=== PATIENT | male | born 1940 | race Caucasian/White ===

== ENCOUNTER 2025-05-10 10:02 | Observation (INO) | payer OTHER ==
[~2025-05-10] VITALS: Ht 170.2 cm; Wt 75.0 kg
[2025-05-10 10:47] LABS: BASOPHILS ABSOLUTE AUTO 0.02 K/mm3 (0.00-0.23); BASOPHILS PERCENT AUTO 0 % (0-2); EOSINOPHILS ABSOLUTE AUTO 0.07 K/mm3 (0.00-0.68); EOSINOPHILS PERCENT AUTO 1 % (0-6); Hematocrit 42.4 % (37.0-53.0); Hemoglobin 14.3 g/dL (13.5-17.5); IMMATURE GRAN ABSOLUTE AUTO 0.02 K/mm3 (0.00-0.10); IMMATURE GRAN PERCENT AUTO 0 % (0-1); LYMPHOCYTES ABSOLUTE AUTO 1.10 K/mm3 (0.84-5.20); LYMPHOCYTES PERCENT AUTO 17 % (21-46); MONOCYTES ABSOLUTE AUTO 0.50 K/mm3 (0.16-1.47); MONOCYTES PERCENT AUTO 8 % (4-13); Mean Corpuscular HGB Conc 33.7 g/dL (31.5-36.5); Mean Corpuscular Volume 96 fL (80-100); NEUTROPHILS ABSOLUTE AUTO 4.87 K/mm3 (1.96-9.15); NEUTROPHILS PERCENT AUTO 74 % (41-73); NRBC ABSOLUTE 0.00 K/mm3 (0.00-0.02); NRBC Auto 0.0 /100 WBC (0.0-0.2); Platelet Count 168 K/mm3 (150-400); RDW Coefficient Variation 14.9 % (11.7-14.2); RDW Standard Deviation 51.9 fL (35.1-46.3)
[2025-05-10] MEDS ORDERED: FOLI1 PO (11:09)
[2025-05-10] MEDS ORDERED: AMLO10 PO (11:09)
[2025-05-10] MEDS ORDERED: NS 1,000 ML IV SCH (11:10)
[2025-05-10 11:12] LABS: Alanine Aminotransfer (ALT/SGP 26.0 U/L (12-78); Albumin, Blood 3.5 g/dL (3.4-5.0); Albumin/Globulin Ratio 0.9 (0.8-1.8); Anion Gap 7.0 mmol/L (3-11); Aspartate Aminotrans (AST/SGOT 31.0 U/L (12-37); Bilirubin, Total 1.3 mg/dL (0.1-1.0); Blood Urea Nitrogen 17.0 mg/dL (8-24); CO2, Blood 25.0 mmol/L (21-32); Calcium, Blood 8.8 mg/dL (8.5-10.1); Chloride, Blood 112.0 mmol/L (98-108); Creatinine, Blood 0.99 mg/dL (0.60-1.20); Globulin, Blood 4.0 g/dL (2.2-4.0); Glucose, Blood 93.0 mg/dL (70-99); Potassium, Blood 4.1 mmol/L (3.5-5.5); Sodium, Blood 140.0 mmol/L (136-145); Total Protein, Blood 7.5 g/dL (6.4-8.2)
[2025-05-10] MEDS ORDERED: POTA10T PO (11:12)
[2025-05-10] MEDS ORDERED: ERGO400 PO (11:12)
[2025-05-10] MEDS ORDERED: Aspir 8181 MG PO (11:13)
[2025-05-10] MEDS ORDERED: METTREX2.5 PO (11:13)
[2025-05-10] MEDS ORDERED: LOSA50 PO (11:13)
[2025-05-10] MEDS ORDERED: Vitamin B-12100 MCG PO (11:14)
[2025-05-10] MEDS ORDERED: FLU VACC TS2025(65UP)/MF59C/PF 45 MCG/0.5 ML SYRINGE IM SCH (13:55)
[2025-05-10 16:04] VITALS: BP 160/102
--- NOTE | 2025-05-10 19:23 | NUR ---
SHIFT SUMMARY PATIENT ALERT AND ORIENTEDX4 BUT FORGETFUL. ABLE TO MAKE NEEDS KNOWN DENIES CP OR SOB. TOLERATING MEALS AND VOIDING IN THE URINAL. HOSPITALIST AWARE OF TROP LEVELS AND AWARE OF PACER INTERAGATION ATTEMPT BUT NO SUCCESS AT BEDSIDE. HE WILL NEEDS TO HAVE IT DONE AT THE [facility] TOMORROW.
[2025-05-10 19:28] VITALS: BP 140/94
--- NOTE | 2025-05-10 19:59 | NUR ---
PM NOTE PT ALERT, ORIENTED X4; FORGETFUL AT TIMES. ON BEDREST. PT DENIES PAIN, CHEST PAIN/PRESSURE, SOB, NASUEA, AND DIZZINESS AND LIGHTHEADEDNESS AT THIS TIME. TELE SHOWING PACED, BP STABLE. SPO2 >90% ON RA, BREATHING EVEN AND UNLABORED. ABD SOFT, NONTENDER, HYPERACTIVE B/T T/O. NO EDEMA NOTED. OTHER VSS. CALL LIGHT WITHIN REACH.
[2025-05-10 23:57] VITALS: BP 150/89
[2025-05-11 03:24] VITALS: BP 153/101
[2025-05-11 04:11] LABS: Anion Gap 6.0 mmol/L (3-11); Blood Urea Nitrogen 14.0 mg/dL (8-24); CO2, Blood 28.0 mmol/L (21-32); Calcium, Blood 8.8 mg/dL (8.5-10.1); Chloride, Blood 109.0 mmol/L (98-108); Creatinine, Blood 0.87 mg/dL (0.60-1.20); Glucose, Blood 90.0 mg/dL (70-99); Potassium, Blood 3.1 mmol/L (3.5-5.5); Sodium, Blood 140.0 mmol/L (136-145)
--- NOTE | 2025-05-11 04:54 | NUR ---
Shift Summary No acute changes noted during shift. Vss. Call light with in reach.
[2025-05-11 07:40] VITALS: BP 135/102
--- NOTE | 2025-05-11 08:27 | NUR ---
ORTHOSTATIC VITALS: LYING: BP - 119/81(93) HR - 82 SITTING: BP - 121/87(95) HR - 86 STANDING: BP - 136/105 (117) HR - 88
[2025-05-11] MEDS ORDERED: Enoxaparin 40 MG/0.4 ML SYR SC SCH (09:00)
[2025-05-11] MEDS ORDERED: Cholecalciferol 1000 Unit Tablet (=25MCG) PO SCH (09:00)
[2025-05-11] MEDS ORDERED: Folic Acid 1 MG TAB PO SCH (09:00)
--- NOTE | 2025-05-11 10:03 | NUR ---
AM NOTE: PATIENT ALERT AND ORIENTED. SEEMS TO BE FORGETFULL AT TIMES. BED ALARM IN PLACE. AT BEDSIDE. PERRLA. USING ALL EXTREMITIES. SLIGHTLY ROBINSON. DENIES PAINS. ABLE TO TURN AND REPOSITION SELF IN BED. SBA FOR SAFETY. PHYSICAL THERAPY IN ROOM AT THIS TIME. TELE SHOWING V PACED WITH HR 70-90'S. SBP 110-130'S. ORTHOSTATIC VITALS COMPLETE, SEE PREVIOUS NOTE. DENIES CHEST PAIN/PRESSURE/PALPITATIONS. DENIES FEELINGS OF SYNCOPE. PPP. IV'S SALINE LOCKED. ON ROOM AIR SATING ABOVE 95%. DENIES SOB. LUNG SOUNDS CLEAR. EVEN AND UNLABORED RESPIRATIONS. BOWEL TONES PRESENT. DENIES ABDOMINAL PAIN/NAUSEA. USING URINAL TO VOID. UP TO BATHROOM WITH ASSISTANCE. TOLERATING PO DIET. VISIT FROM PRINTING SIGN MACHINE OPERATOR THIS AM. ORAL SUPPLEMENTS ORDERED. SKIN C/D/I WITH SOME SCATTERED BRUISING. PATIENT NOTED TO HAVE LARGE AMOUNT OF MOLES SCATTERED ACROSS BACK. PLAN FOR PACER INTERROGATION TO BE COMPLETED BY [facility]ART [facility]ENTER STAFF THIS MORNING. DR. SPEARS TO BEDSIDE, THIS RN PRESENT FOR MD ROUNDING. NO NEW ORDERS FOR THIS RN TO PLACE. REMAINS AT BEDSIDE. CALL LIGHT IN REACH.
--- NOTE | 2025-05-11 10:34 | NUR ---
PACER INTERROGATION BEING DONE AT THIS TIME BY HEART CENTER RN.
[2025-05-11 10:44] VITALS: BP 141/92
--- NOTE | 2025-05-11 10:51 | NUR ---
HEART CENTER RN REPORTED TO THIS RN THAT THERE WAS NO ARRYTHMIAS DETECTED FROM PACER INTERROGATION. DR. SPEARS UPDATED BY THIS RN ON RECENT VITALS, PACER INTERROGATION AND PHYSICAL THERAPY ASSESSMENT.
--- NOTE | 2025-05-11 12:09 | NUR ---
DISCHARGE: NO ACUTE CHANGES. PATIENT VITALS STABLE. AT BEDSIDE FOR DISCHARGE. THIS RN EDUCATED ON FOLLOW UP APPOINTMENTS, NEW MEDICATION DOSE OF COZAAR, TO STOP NORVASC, SIGNS AND SYMPTOMS OF WHEN TO RETURN AND IV REMOVAL. MEDS FAXED TO [facility]. PATIENT LEFT UNIT WITH ALL PERSONAL BELONGINGS VIA WHEELCHAIR.
== END 2025-05-11 12:00 | disposition home or self-care (01) ==
LOC: ER 10:02 → ERHOLD 10:03 → PCU 16:21
PROVIDERS: Emergency Medicine; ADMIT Internal Medicine
DX: R55 Syncope and collapse (principal); I95.9 Hypotension, unspecified; E87.6 Hypokalemia; I11.9 Hypertensive heart disease without heart failure; I48.91 Unspecified atrial fibrillation; J84.10 Pulmonary fibrosis, unspecified; Z95.0 Presence of cardiac pacemaker; Z79.82 Long term (current) use of aspirin; Z79.899 Other long term (current) drug therapy; Z86.73 Personal history of transient ischemic attack (TIA), and cerebral infarction without residual deficits
CPT/HCPCS: 36415; 71046; 80048; 80053; 83735; 83880; 84484; 85025; 93005; 93010; 93288; 96360; 96372; 97116; 97162; 99285-25; A9270; G0378; J1650; J7030